=== PATIENT | female | born 1990 | race Caucasian/White ===

== ENCOUNTER 2016-08-14 22:51 | Inpatient (IN) | payer BC ==
[~2016-08-14] VITALS: Ht 154.9 cm; Wt 84.9 kg
[~2016-08-14 22:51] MED LIST: ENDOCET 5-3251 EACH PO; IBUPROFEN800 MG PO; PRENATAL TABLE1 EAC3 PO
[2016-08-14 23:14] VITALS: BP 131/83
[2016-08-15] VITALS (9 sets, daily range): BP systolic 95–120; BP diastolic 53–70
[2016-08-15] MEDS ORDERED: IBUPROFEN800 MG PO (01:15)
[2016-08-15] MEDS ORDERED: ENDOCET 5-3251 EACH PO (01:15)
[2016-08-16 03:00] VITALS: BP 110/60
[2016-08-16 06:44] LABS: EOSINOPHIL (%) 0.6 % (0-5); EOSINOPHIL COUNT 0.1 K/uL (0-0.3); HEMATOCRIT 30.6 % (36.0-46.0); IMMATURE GRANULOCYTE (%) 1.2 % (0.0-0.7); IMMATURE GRANULOCYTE COUNT 0.1 K/uL; INSTRUMENT ABS NEUTROPHIL CT 6.4 K/uL; LYMPHOCYTE COUNT 1.3 K/uL (1.0-2.8); MCH 30.4 PG (29.0-34.0); MCHC 32.7 G/DL (30.0-36.0); MEAN PLAT.VOLUME 11.3 uM^3 (9.5-12.4); MONOCYTE COUNT 0.7 K/uL (0-0.8); NEUTROPHIL (%) 75.1 % (45-76); NEUTROPHIL COUNT 6.4 K/uL (1.8-6.4); PLATELET COUNT 121 K/uL (156-360); RBC DIS.WIDTH-CV 13.7 % (11.8-14.6); RED BLOOD COUNT 3.29 M/uL (3.80-5.20); WHITE BLOOD COUNT 8.5 K/uL (4.1-10.2)
[2016-08-16 07:15] VITALS: BP 104/55
[2016-08-16 11:11] VITALS: BP 103/64
[2016-08-16 15:41] VITALS: BP 115/72
[2016-08-16 20:13] VITALS: BP 106/64
[2016-08-16 23:31] VITALS: BP 113/67
[2016-08-17 03:13] VITALS: BP 117/69
[2016-08-17 07:20] VITALS: BP 118/73
== END 2016-08-17 15:01 | disposition home or self-care (01) | DRG 766 ==
LOC: LDRP-OP → 2WEST 22:52 → LDRP-OP 09-13 10:26
PROVIDERS: Obstetrics & Gynecology
PROC: 10D00Z1 Extraction of Products of Conception, Low, Open Approach (ICD-10-PCS; principal; 2016-08-15)
DX: O34.211 Maternal care for low transverse scar from previous cesarean delivery (principal); O26.893 Other specified pregnancy related conditions, third trimester; O76 Abnormality in fetal heart rate and rhythm complicating labor and delivery; Z37.0 Single live birth; M54.30 Sciatica, unspecified side; O69.81X0 Labor and delivery complicated by cord around neck, without compression, not applicable or unspecified; Z3A.40 40 weeks gestation of pregnancy; Z87.891 Personal history of nicotine dependence; O26.03 Excessive weight gain in pregnancy, third trimester; Z68.35 Body mass index [BMI] 35.0-35.9, adult
CPT/HCPCS: 36415; 85025; 86900; 86901; 88307; G0378; J0690; J1100; J2175; J2274; J2405; J2765; J3010; J7120